=== PATIENT | female | born 1990 | race Native Hawaiian/Other Pacific Islander ===

== ENCOUNTER 2018-10-18 22:32 | Inpatient (IN) | payer OTHER ==
[2018-10-19] MEDS ORDERED: SUBLIMAZE IV PRN (01:26)
[2018-10-19] MEDS ORDERED: BRETHINE SUB-Q PRN (01:26)
[2018-10-19] MEDS ORDERED: XYLOCAINE 2% INFILTRATI ONE (01:26)
[2018-10-19] MEDS ORDERED: LACTATED RINGERS 1,000 ML ONE (01:29)
--- NOTE | 2018-10-19 01:29 | History and Physical Report ---
History of Present Illness Date of examination: 10/19/18 Date of admission: 10/19/18 01:18 Chief complaint: Labor History of present illness: 28 year old presents to L&D in active labor with advanced cervical dilation. Patient denies vaginal bleeding or leaking of fluid. Patient received care at [facility] and she brings records with her. LMP 01/15/18. EDC 10/22/18. significant for the folllowing: anemia, elevated 1 hour sugar test with normal 3 hour OGTT. labs are as follows: O+, antibody screen negative, pap smear negative, rubella immune, HIV negative, RPR nonreactive, hepatitis B surface antigen negative, chlamydia negative, gonorrhea negative, quad screen negative, GBS negative, 1 hour sugar test 147 (3 hour sugar test results: 71, 164, 111, 109). 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 denies: smoking, alcohol abuse, prescription drug abuse, IV drug use - Obstetrical History Expected Date of Delivery: 10/22/18 Actual Gestation: 39 Week(s) 4 Day(s) : 4 Para: 2 Hx # Term Pregnancies: 3 Number of Pregnancies: 0 Spontaneous Abortions: 1 Induced : 0 Number of Living Children: 2 Medications and Allergies Allergies Allergy/AdvReac Type Severity Reaction Status Date / Time No Known Allergies Allergy Verified 10/19/18 01:11 Home Medications Medication Instructions Recorded Confirmed Last Taken Type No Known Home Medications [No 10/19/18 10/19/18 Unknown History Reported Home Medications] Review of Systems All systems: negative (labor) - Vital Signs Vital signs: Vital Signs Pulse BP 71 110/60 10/18/18 23:57 10/18/18 23:57 Temp Pulse Resp BP Pulse Ox 71 110/60 10/18/18 23:57 10/18/18 23:57 - Physical Exam Abdomen: Positive: normal appearance, soft. Negative: distention, tenderness, guarding, rigidity Genitourinary (Female): Positive: normal external genitalia, normal perenium. Negative: perineal/vulvar lesions Vagina: Positive: normal moisture Uterus: Positive: enlarged. Negative: tender Anus/Rectum: Positive: normal perianal skin Extremities: Positive: normal. Negative: tenderness, edema - Obstetrical FHR: category 1 Uterine Contraction Monitor Mode: External Cervical Dilatation: 7.5 Cervical Effacement Percentage: 90 station: -1 Uterine Contraction Pattern: Regular Uterine Contraction Intensity: Moderate Results All other labs normal. Assessment and Plan A: at 39 weeks, 4 days gestation. Active labor with advanced cervical dilation. GBS negative. P: Admit. Anticipate vaginal .
[2018-10-19] MEDS ORDERED: LACTATED RINGERS 1,000 ML IV SCH ×2 (01:34→02:00)
[2018-10-19] MEDS: PITOCin/NS 20 UNIT/1000ML DRIP 20 UNITS/1,000 ML BAG IV SCH ×2 (02:35→05:27)
[2018-10-19 02:51] LABS: Hematocrit 37.5 % (30.3-42.9); Hemoglobin 12.7 gm/dl (10.1-14.3); Mean Corpuscular HGB Conc 34 % (30-34); Mean Corpuscular Volume 91 fl (79-97); Platelet Count 203 K/mm3 (140-440); Red Blood Count 4.13 M/mm3 (3.65-5.03); Red Cell Distribution Width 14.5 % (13.2-15.2)
[2018-10-19] MEDS ORDERED: TUCKS PAD TP PRN (02:52)
[2018-10-19] MEDS ORDERED: MILK OF MAGNESIA PO PRN (02:52)
[2018-10-19] MEDS ORDERED: NORCO 5/325 PO PRN (02:52)
[2018-10-19] MEDS ORDERED: LANSINOH TP PRN (02:52)
[2018-10-19] MEDS ORDERED: DULCOLAX PR PRN (02:52)
--- NOTE | 2018-10-19 02:59 | Procedure Note ---
OB Delivery Note - Delivery Date of Delivery: 10/19/18 Surgeon: ESA CUELLAR Estimated blood loss: other (250 cc) - Vaginal Delivery presentation: vertex Delivery position: OA Intrapartum events: meconium (possible thin meconium fluid) Delivery induction: none Delivery monitor: external FHT, external uterine Route of delivery: Delivery placenta: spontaneous Delivery cord: 3 umbilical vessels Episiotomy: none Delivery laceration: 1st degree Delivery repair: vicryl Anesthesia: none Delivery comments: Spontaneous vaginal delivery at 02:30 of liveborn male weighing 8 lb. 5 oz. with apgars of 9/9. Baby placed immediately skin to skin with mom after . Spontaneous cry and respirations. Baby bulb suctioned. Possible thin meconium fluid noted with . 3 vessel cord double clamped and cut after cessation of pulsation. Spontaneous delivery of intact placenta and membranes. Cord blood obtained. EBL 250 cc. Pitocin to IV fluids after delivery of placenta. Fundus firm and midline. 1st degree perineal laceration repaired with 2-0 vicryl under lidocaine local. Vaginal sweep negative. Sponge count correct. Mother and baby stable in birthing room.
[2018-10-19] MEDS ORDERED: SODIUM CHLORIDE FLUSH SYRINGE 10 ML IV PRN (03:00)
[2018-10-19] MEDS: IBUPROFEN PO SCH ×3 (05:15→17:41)
[2018-10-19 17:27] LABS: Hematocrit 32.2 % (30.3-42.9); Hemoglobin 10.9 gm/dl (10.1-14.3)
[2018-10-20] MEDS: IBUPROFEN PO SCH ×3 (00:14→10:04)
--- NOTE | 2018-10-20 10:22 | Progress Note ---
Assessment and Plan - Patient Problems (1) Status post normal vaginal delivery Current Visit: Yes Status: Acute Plan to address problem: PPD 2 - stable Discharge to home today Follow-up at [facility] as needed or in 6 weeks for exam Subjective - Subjective Date of service: 10/20/18 Principal diagnosis: PPD #2; s/p Interval history: see H&P and OB Delivery Procedure Note Patient reports: appetite normal, voiding normally, pain well controlled, ambulating normally [place]: doing well, other (breast and bottle feeding) Objective - Vital Signs Latest vital signs: Vital Signs Temp Pulse Resp BP BP Pulse Ox 10/20/18 07:51 98.2 F 60 20 99/45 97 10/20/18 00:25 98.7 F 64 18 95/46 10/19/18 16:36 97.8 F 69 20 94/44 97 10/19/18 12:08 102/57 10/19/18 11:42 98.0 F 71 20 80/43 97 Intake and Output 10/19/18 10/20/18 10/20/18 23:59 07:59 15:59 Intake Total 300 200 Balance 300 200 Intake: Oral 200 Intake, Free Water 300 Other: Total, Intake Amount 200 - Exam Cardiovascular: Present: Regular rate Lungs: Present: Clear to auscultation Abdomen: Present: normal appearance, soft Vulva: both: laceration/episiotomy (well approximated) Uterus: Present: normal, firm, fundal height below umbilicus Extremities: Present: normal Comments: small lochia
--- NOTE | 2018-10-20 10:26 | Discharge Summary ---
Providers - Providers Date of Admission: 10/19/18 01:18 Date of discharge: 10/20/18 Attending physician: SHAINA MCINTOSH MD Primary care physician: SHAINA MCINTOSH MD Hospitalization Reason for admission: active labor, IUP at term Delivery: Episiotomy: none Laceration: 1st degree Other procedures: none complications: none Discharge diagnosis: IUP at term delivered [place] baby: male Hospital course: Uncomplicated Condition at discharge: Stable Disposition: [facility] TO HOME OR SELFCARE - Discharge Diagnoses (1) Status post normal vaginal delivery Status: Acute Plan - Provider Discharge Summary Activity: routine, no sex for 6 weeks, no heavy lifting 4 weeks, no strenuous exercise Diet: routine Instructions: routine Additional instructions: [] Smoking cessation referral if applicable(refer to patient education folder for contact #) [] Refer to [facility]'s [facility] Booklet Call your doctor immediately for: * Fever > 100.5 * Heavy vaginal bleeding ( >1 pad per hour) * Severe persistent headache * Shortness of breath * Reddened, hot, painful area to leg or breast * Drainage or odor from incision. * Keep incision clean and dry at all times and follow doctor's instructions regarding bathing/showering - Follow up plan Follow up: SHAINA MCINTOSH MD [Primary Care Provider] - 6 Weeks (Follow-up at [facility] as needed or in 6 weeks for exam)
[2018-10-20 14:30] VITALS: BP 97/52
== END 2018-10-20 14:05 | disposition home or self-care (01) | DRG 807 ==
LOC: TRG 22:32 → LD 10-19 01:18 → OB 10-19 05:27
PROVIDERS: ADMIT Obstetrics & Gynecology; ATTEND Obstetrics & Gynecology
PROC: 10E0XZZ Delivery of Products of Conception, External Approach (ICD-10-PCS; principal; 2018-10-19)
PROC: 0HQ9XZZ Repair Perineum Skin, External Approach (ICD-10-PCS; 2018-10-19)
DX: O77.0 Labor and delivery complicated by meconium in amniotic fluid (principal); Z37.0 Single live birth; Z3A.39 39 weeks gestation of pregnancy; O70.0 First degree perineal laceration during delivery
CPT/HCPCS: 36415; 85014; 85018; 85027; 86592; 86850; 86900; 86901; G0378; A6250; J2590; J7120